=== PATIENT | female | born 1950 | race African-American/Black ===

== ENCOUNTER → 2022-07-24 11:59 | Outpatient (BNVA) | payer OTHER, SELFPAY | PROVIDERS: Visit Provider Internal Medicine | DX: S50.11XA Contusion of right forearm, initial encounter (principal); X50.3XXA Overexertion from repetitive movements, initial encounter | CPT/HCPCS: 99203 ==

== ENCOUNTER 2025-09-10 11:23 | Outpatient (AMB) | payer OTHER, SELFPAY ==
--- NOTE | 2025-09-10 11:24 | A.OFFVIS_ITS ---
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 Present Accompanied by: Neel Ramos Allergies No Known Allergies Allergy (Verified 09/10/25 11:33) Medication List - Last Reconciled 09/10/25 by Payal Martínez LPN albuterol (refill) 90 mcg/actuation mcg inhalation aspirin (Adult Aspirin Regimen) 81 mg PO DAILY atorvastatin (Lipitor) 40 mg PO BEDTIME cholecalciferol (vitamin D3) 25 mcg PO DAILY empagliflozin (Jardiance) 25 mg PO DAILY insulin glargine (Basaglar KwikPen U-100 Insulin) 10 units subcut QPM meclizine 12.5 mg PO TID PRN metformin 1,000 mg PO BID metoprolol succinate ER 50 mg PO DAILY tirzepatide (Mounjaro) 2.5 mg subcut QWEEK valsartan 320 mg PO DAILY HPI HPI Left shoulder pain/injection: Details: History of Present Illness The patient is a 75-year-old female presenting with shoulder pain. The pain is attributed to osteoarthritis, as indicated by a previous x-ray ordered by Dr. Isbell, which showed arthritis throughout the shoulder. The patient has not received any injections for this condition previously. The patient also has a history of diabetes mellitus, which is currently managed with insulin. She reports taking insulin in the morning but does not adjust the dose throughout the day. Her blood sugar levels have been variable, sometimes reaching 180 mg/dL, and she has been advised to monitor her blood sugar more frequently, especially after receiving a shoulder injection. Pain Description - Onset: Chronic shoulder pain attributed to osteoarthritis - Quality: Described as a sensation of something running in the shoulder, with itching relieved by pinching - Location: Shoulder - Exacerbating factors: Not explicitly mentioned - Relieving factors: Pinching provides temporary relief Physical Exam - Appears afebrile. - Alert and oriented. - Mood and affect appropriate. - Follows and participates in conversation appropriately. Results - Imaging: X-ray of the shoulder showed arthritis throughout the joint Pain Management - Affect: Not explicitly discussed - Analgesia: Plan to administer a shoulder injection; current pain levels not specified - Adverse Effects: Potential for increased blood sugar levels post-injection - Activities of Daily Living: Not explicitly discussed - Aberrant Drug Related Behaviors: Not discussed [facility] Medical History (Updated 09/10/25 @ 12:07 by Konrad Bella MD) Vitamin D deficiency Severe obesity OA (osteoarthritis) of knee CHUCKIE (obstructive sleep apnea) Knee joint effusion Hypertensive disorder Hyperlipidemia Fatigue Dysphagia Diabetes Coronary atherosclerosis BPV (benign positional vertigo) Asthma Physical Exam Vital Signs: Last Vital Signs Pulse 80 09/10/25 11:31 Resp 16 09/10/25 11:31 BP 130/62 09/10/25 11:31 BMI result Body Mass Index 39.6 Office Procedures AMB Joint Injection/Aspiration Joint Injection/Aspiration Primary Site: left shoulder Prep: site was prepped using sterile technique Injected: 20 mg of, Kenalog, with 4 mL of (ropivacaine 0.25%) and in the joint Approach Used: posterolateral (US guided) Procedure: The patient tolerated the procedure well Coding Details: Image saved - Glenohumeral with ultrasound guidance Procedure code (CPT) selection complete Assessment & Plan Assessment & Plan (1) Cervical radicular pain: Code(s): M54.12 - Radiculopathy, cervical region Category: Medical Plan Plan Patient was informed and verbally consented to the use of an ambient scribe for clinic note documentation during this visit. 1. Osteoarthritis - S/p glenohumeral steroid injection to the shoulder. - Consideration of physical therapy for the neck as the pain might be originating from there. 2. Diabetes Mellitus - Monitor blood sugar levels more frequently post-injection due to potential hyperglycemia. - Discuss with primary care physician about insulin adjustments if blood sugar levels rise significantly. Discussion Notes I discussed with the patient the plan to administer a corticosteroid injection to the shoulder to manage osteoarthritis pain. I informed her about the potential for increased blood sugar levels following the injection and advised her to monitor her glucose levels closely. We also discussed the possibility of physical therapy for her neck, as it might be contributing to her shoulder pain. Patient Instructions - Monitor your blood sugar levels more frequently after the shoulder injection. - Contact your primary care physician if your blood sugar levels rise significantly. - Consider starting physical therapy for your neck to help with shoulder pain. Orders: Orders PT Evaluation and Treatment 09/10/25 M54.12 - Radiculopathy, cervical region Coding Level of Care Code New Pt Level 4 (92728) Diagnoses Cervical radicular pain M54.12 CPT Codes Coding - Joint 8: 67012 - Glenohumeral with ultrasound guidance ([id number])
[2025-09-10 11:31] VITALS: BP 130/62; PULSE 80; RESP 16; BMI 39.6
== END 2025-09-10 12:04 | disposition home or self-care (01) ==
PROVIDERS: PCP Internal Medicine; Visit Provider Internal Medicine
DX: M25.512 Pain in left shoulder (principal); M54.12 Radiculopathy, cervical region
CPT/HCPCS: 20611; 99204

== ENCOUNTER → 2025-09-10 11:23 | Outpatient (BNVA) | payer OTHER, SELFPAY | PROVIDERS: PCP Internal Medicine; Visit Provider Internal Medicine | DX: M54.12 Radiculopathy, cervical region (principal); M25.512 Pain in left shoulder | CPT/HCPCS: 20611; J2795; J3301 ==